=== PATIENT | male | born 1945 | race Caucasian/White ===

== ENCOUNTER → 2019-02-28 | Outpatient (CLI) | payer OTHER | END | disposition home or self-care (01) | LOC: WOUNDCARE 02:42 | DX: E11.622 Type 2 diabetes mellitus with other skin ulcer (principal); L97.822 Non-pressure chronic ulcer of other part of left lower leg with fat layer exposed; L97.811 Non-pressure chronic ulcer of other part of right lower leg limited to breakdown of skin; E11.51 Type 2 diabetes mellitus with diabetic peripheral angiopathy without gangrene; I11.0 Hypertensive heart disease with heart failure; I50.9 Heart failure, unspecified; Z96.653 Presence of artificial knee joint, bilateral ==

== ENCOUNTER → 2019-03-23 | Outpatient (CLI) | payer OTHER | END | disposition home or self-care (01) | LOC: US 03-01 11:30 | DX: E11.622 Type 2 diabetes mellitus with other skin ulcer (principal); L97.812 Non-pressure chronic ulcer of other part of right lower leg with fat layer exposed; L97.828 Non-pressure chronic ulcer of other part of left lower leg with other specified severity; E11.51 Type 2 diabetes mellitus with diabetic peripheral angiopathy without gangrene; I11.0 Hypertensive heart disease with heart failure; I50.9 Heart failure, unspecified ==

== ENCOUNTER 2020-09-30 09:06 | Inpatient (IN) | payer OTHER ==
[~2020-09-30] VITALS: Ht 182.8 cm; Wt 119.4 kg
[2020-09-30 09:08] VITALS: BP 146/63
[2020-09-30 09:47] LABS: MEAN CELL VOLUME 85.5 fl (80.0-94.0); MEAN CORPUSCULAR HGB 26.5 pg (27.0-31.0); MEAN PLATELET VOLUME 12.2 fl (9.6-12.3); PLATELET COUNT AUTOMATED 101 10*3/uL (130-400); RED BLOOD COUNT 4.68 10*6/uL (4.50-5.90); RED CELL DISTRI WIDTH 15.4 % (0-14.5); WHITE BLOOD COUNT 10.8 10*3/uL (4.8-10.8)
[2020-09-30 09:57] LABS: ACT PARTIAL THROMBO TIME 35.3 SECONDS (20.0-32.1); INTERNATIONAL NORM RATIO 1.2 (2.0-3.5)
[2020-09-30 10:03] LABS: ALBUMIN 2.8 gm/dl (3.1-4.5); CREATININE 3.1 mg/dL (0.70-1.30); POTASSIUM 5.3 mmol/L (3.5-5.1); TOTAL PROTEIN 7.2 gm/dL (6.4-8.2); TROPONIN I 0.037 ng/ml (<0.045)
[2020-09-30 10:07] LABS: ACANTHOCYTES FEW; PLATELET SUFFICIENCY LOW (NORMAL); SCHISTOCYTES FEW; TOTAL CELLS COUNTED 100 #CELLS
[2020-09-30 17:49] LABS: BILIRUBIN Negative (Negative); BLOOD 2+ (Negative); CLARITY Cloudy (Clear); COLOR Yellow (Yellow); GLUCOSE 1+ (Negative); KETONE Negative (Negative); LEUKO ESTERASE Negative (Negative); NITRITE Negative (Negative); SPECIFIC GRAVITY 1.025 (1.001-1.030)
[2020-09-30 17:51] VITALS: BP 127/60
[2020-09-30 17:57] LABS: BACTERIA 1+
[2020-09-30 23:55] VITALS: BP 121/63
[2020-10-01 06:14] LABS: HEMATOCRIT 35.8 % (42.0-52.0); MEAN CELL VOLUME 85.2 fl (80.0-94.0); MEAN CORPUSCULAR HGB 27.1 pg (27.0-31.0); MEAN CORPUSCULAR HGB CONC 31.8 g/dl (33.0-37.0); MEAN PLATELET VOLUME 12.9 fl (9.6-12.3); PLATELET COUNT AUTOMATED 96 10*3/uL (130-400); RED CELL DISTRI WIDTH 15.7 % (0-14.5); WHITE BLOOD COUNT 6.1 10*3/uL (4.8-10.8)
[2020-10-01 06:28] LABS: INTERNATIONAL NORM RATIO 1.3 (2.0-3.5)
[2020-10-01 06:42] LABS: POTASSIUM 4.9 mmol/L (3.5-5.1)
[2020-10-01 07:00] LABS: TOTAL CELLS COUNTED 100 #CELLS
[2020-10-01 07:01] LABS: ACANTHOCYTES FEW; BURR CELLS FEW; OVALOCYTES FEW; PLATELET SUFFICIENCY LOW (NORMAL); SCHISTOCYTES FEW
[2020-10-01 07:06] LABS: ALBUMIN 2.3 gm/dl (3.1-4.5); CREATININE 2.97 mg/dL (0.70-1.30); FREE T4 1.05 ng/dl (0.76-1.46); THYROID STIM HORMONE (HS) 7.73 uIU/ml (0.358-4.75); TOTAL PROTEIN 6.4 gm/dL (6.4-8.2)
[2020-10-01 08:10] LABS: COMPLEMENT C4 20 mg/dL (12-38)
[2020-10-01 09:15] VITALS: BP 129/58
[2020-10-01] MEDS ORDERED: ELIQUIS5 M1 PO (09:39)
[2020-10-01] MEDS ORDERED: COREG25 MG PO (10:32)
[2020-10-01] MEDS ORDERED: LEVOFLOXACIN500 MG PO (10:37)
[2020-10-01] MEDS ORDERED: METHYLPREDNISONE4 MG PO (10:37)
[2020-10-01] MEDS ORDERED: BENZONATATE200 MG PO (10:38)
[2020-10-01] MEDS ORDERED: FREESTYLE LIBR1 EAC2 MC (10:39)
[2020-10-01 12:56] VITALS: BP 128/62
[2020-10-01 14:53] VITALS: BP 155/79
[2020-10-01 20:00] VITALS: BP 162/68
[2020-10-02] VITALS: BP 158/63
[2020-10-02 08:00] VITALS: BP 154/75
[2020-10-02 09:22] LABS: HEMATOCRIT 37.8 % (42.0-52.0); MEAN CELL VOLUME 84.9 fl (80.0-94.0); MEAN CORPUSCULAR HGB 26.7 pg (27.0-31.0); MEAN CORPUSCULAR HGB CONC 31.5 g/dl (33.0-37.0); MEAN PLATELET VOLUME 11.7 fl (9.6-12.3); PLATELET COUNT AUTOMATED 113 10*3/uL (130-400); RED BLOOD COUNT 4.45 10*6/uL (4.50-5.90); RED CELL DISTRI WIDTH 15.9 % (0-14.5); WHITE BLOOD COUNT 9.7 10*3/uL (4.8-10.8)
[2020-10-02 09:52] LABS: ALBUMIN 2.2 gm/dl (3.1-4.5); CREATININE 3.18 mg/dL (0.70-1.30); POTASSIUM 5.1 mmol/L (3.5-5.1); TOTAL PROTEIN 6.5 gm/dL (6.4-8.2)
[2020-10-02 10:10] LABS: TOTAL CELLS COUNTED 100 #CELLS
[2020-10-02 10:11] LABS: ACANTHOCYTES MODERATE; PLATELET SUFFICIENCY LOW (NORMAL)
[2020-10-02 12:00] VITALS: BP 140/55
[2020-10-02 12:31] LABS: BODY FLUID WBC 103 /uL
[2020-10-02 13:18] LABS: BF LYMPHOCYTES 8 %; BF MACROPHAGES 54 %; BF MESOTHELIALS 7 %; BF NEUTROPHILS 31 %
[2020-10-02 16:00] VITALS: BP 153/64
[2020-10-02 20:00] VITALS: BP 148/75
[2020-10-03] VITALS: BP 142/55
[2020-10-03 06:14] LABS: BASO % 0.1 % (0.0-1.0); EOS % 0.1 % (1.0-4.0); HEMATOCRIT 37.4 % (42.0-52.0); LYMPH # 0.9 10*3/uL (1.3-4.4); LYMPH % 8.4 % (27.0-41.0); MEAN CELL VOLUME 84.2 fl (80.0-94.0); MEAN CORPUSCULAR HGB 25.9 pg (27.0-31.0); MEAN CORPUSCULAR HGB CONC 30.7 g/dl (33.0-37.0); MEAN PLATELET VOLUME 11.9 fl (9.6-12.3); MONO # 0.8 10*3/uL (0.1-1.0); MONO % 8.2 % (3.0-9.0); NEUT # 8.5 10*3/uL (2.3-7.9); NEUT % 82.9 % (47.0-73.0); PLATELET COUNT AUTOMATED 137 10*3/uL (130-400); RED BLOOD COUNT 4.44 10*6/uL (4.50-5.90); RED CELL DISTRI WIDTH 15.9 % (0-14.5); WHITE BLOOD COUNT 10.3 10*3/uL (4.8-10.8)
[2020-10-03 06:37] LABS: ALBUMIN 2.2 gm/dl (3.1-4.5); CREATININE 3.21 mg/dL (0.70-1.30); POTASSIUM 5.1 mmol/L (3.5-5.1)
[2020-10-03 08:00] VITALS: BP 155/69
[2020-10-03 12:00] VITALS: BP 145/63
[2020-10-03 16:00] VITALS: BP 156/68
[2020-10-03 20:00] VITALS: BP 161/63
[2020-10-04] VITALS: BP 173/75
[2020-10-04 06:13] LABS: BASO % 0.1 % (0.0-1.0); EOS % 0.2 % (1.0-4.0); HEMATOCRIT 38.9 % (42.0-52.0); LYMPH # 0.9 10*3/uL (1.3-4.4); LYMPH % 9.1 % (27.0-41.0); MEAN CELL VOLUME 85.9 fl (80.0-94.0); MEAN CORPUSCULAR HGB 26.9 pg (27.0-31.0); MEAN CORPUSCULAR HGB CONC 31.4 g/dl (33.0-37.0); MEAN PLATELET VOLUME 10.7 fl (9.6-12.3); MONO # 0.9 10*3/uL (0.1-1.0); MONO % 9.2 % (3.0-9.0); NEUT % 80.9 % (47.0-73.0); PLATELET COUNT AUTOMATED 149 10*3/uL (130-400); RED BLOOD COUNT 4.53 10*6/uL (4.50-5.90); RED CELL DISTRI WIDTH 15.9 % (0-14.5); WHITE BLOOD COUNT 9.8 10*3/uL (4.8-10.8)
[2020-10-04 06:48] LABS: CREATININE 3.09 mg/dL (0.70-1.30); POTASSIUM 5.1 mmol/L (3.5-5.1)
[2020-10-04 08:00] VITALS: BP 172/87
[2020-10-04 08:33] VITALS: BP 180/84
[2020-10-04 12:00] VITALS: BP 175/80
[2020-10-04 16:00] VITALS: BP 176/78
[2020-10-04 20:00] VITALS: BP 178/81
[2020-10-05] VITALS (7 sets, daily range): BP systolic 166–186; BP diastolic 73–88
[2020-10-05 12:28] LABS: BASO % 0.2 % (0.0-1.0); EOS # 0.1 10*3/uL (0.0-0.4); EOS % 0.8 % (1.0-4.0); HEMATOCRIT 38.8 % (42.0-52.0); LYMPH # 0.9 10*3/uL (1.3-4.4); LYMPH % 11.1 % (27.0-41.0); MEAN CELL VOLUME 84.5 fl (80.0-94.0); MEAN CORPUSCULAR HGB 26.6 pg (27.0-31.0); MEAN CORPUSCULAR HGB CONC 31.4 g/dl (33.0-37.0); MEAN PLATELET VOLUME 10.7 fl (9.6-12.3); MONO % 11.4 % (3.0-9.0); NEUT # 6.3 10*3/uL (2.3-7.9); NEUT % 74.8 % (47.0-73.0); PLATELET COUNT AUTOMATED 169 10*3/uL (130-400); RED BLOOD COUNT 4.59 10*6/uL (4.50-5.90); RED CELL DISTRI WIDTH 15.8 % (0-14.5); WHITE BLOOD COUNT 8.5 10*3/uL (4.8-10.8)
[2020-10-06] VITALS (7 sets, daily range): BP systolic 148–187; BP diastolic 65–78
[2020-10-06 08:55] LABS: BASO % 0.1 % (0.0-1.0); EOS # 0.1 10*3/uL (0.0-0.4); EOS % 1.2 % (1.0-4.0); HEMATOCRIT 38.2 % (42.0-52.0); LYMPH % 12.1 % (27.0-41.0); MEAN CELL VOLUME 86.4 fl (80.0-94.0); MEAN CORPUSCULAR HGB 26.5 pg (27.0-31.0); MEAN CORPUSCULAR HGB CONC 30.6 g/dl (33.0-37.0); MEAN PLATELET VOLUME 10.5 fl (9.6-12.3); MONO # 0.9 10*3/uL (0.1-1.0); MONO % 11.1 % (3.0-9.0); NEUT # 6.3 10*3/uL (2.3-7.9); NEUT % 73.7 % (47.0-73.0); PLATELET COUNT AUTOMATED 165 10*3/uL (130-400); RED BLOOD COUNT 4.42 10*6/uL (4.50-5.90); RED CELL DISTRI WIDTH 15.9 % (0-14.5); WHITE BLOOD COUNT 8.5 10*3/uL (4.8-10.8)
[2020-10-07] VITALS: BP 176/74
[2020-10-07 06:32] LABS: ALBUMIN 2.1 gm/dl (3.1-4.5); CREATININE 2.26 mg/dL (0.70-1.30); POTASSIUM 5.2 mmol/L (3.5-5.1)
[2020-10-07 08:00] VITALS: BP 175/75
[2020-10-07 08:34] VITALS: BP 164/88
[2020-10-07] MEDS ORDERED: DOXYCYCLINE MO100 M1 PO (09:10)
[2020-10-07] MEDS ORDERED: SYNTHROID,LEV125 MCG PO (09:10)
[2020-10-07] MEDS ORDERED: VITAMIN D350 MC2 PO (09:10)
[2020-10-07] MEDS ORDERED: HYDROCODONE-AC1 EAC1 PO (09:10)
[2020-10-07] MEDS ORDERED: ATORVASTATIN CA40 M1 PO (09:10)
[2020-10-07] MEDS ORDERED: ISORDIL10 M1 PO (09:10)
[2020-10-07] MEDS ORDERED: LEVOFLOXACIN750 M2 PO (09:10)
[2020-10-07] MEDS ORDERED: Lantus SC (09:12)
[2020-10-07] MEDS ORDERED: Humalog SQ (09:12)
[2020-10-07] MEDS ORDERED: COREG12.5 M1 PO (11:11)
[2020-10-07] MEDS ORDERED: HYDRALAZINE HYD50 MG PO (11:11)
[2020-10-07] MEDS ORDERED: DOK COLACE100 MG PO (11:11)
[2020-10-07] MEDS ORDERED: LASIX40 MG PO (11:18)
[2020-10-07 12:00] VITALS: BP 176/73
[2020-10-07 16:00] VITALS: BP 175/70
== END 2020-10-07 17:33 | disposition other institution (70) | DRG 291 ==
LOC: ED 09:06 → 5E 11:34 → EDHOLD 11:34 → 5E 10-01 13:36
PROVIDERS: Emergency Medicine; Family Medicine; Internal Medicine Critical Care Medicine; Internal Medicine Nephrology; Podiatrist Foot & Ankle Surgery; Registered Nurse; Student in an Organized Health Care Education/Training Program; ADMIT Student in an Organized Health Care Education/Training Program; ATTEND Student in an Organized Health Care Education/Training Program
PROC: 4B02XTZ Measurement of Cardiac Defibrillator, External Approach (ICD-10-PCS; principal; 2020-10-02)
PROC: 0W993ZZ Drainage of Right Pleural Cavity, Percutaneous Approach (ICD-10-PCS; 2020-10-02)
DX: I13.0 Hypertensive heart and chronic kidney disease with heart failure and stage 1 through stage 4 chronic kidney disease, or unspecified chronic kidney disease (principal); N17.0 Acute kidney failure with tubular necrosis; I50.23 Acute on chronic systolic (congestive) heart failure; L03.116 Cellulitis of left lower limb; I48.92 Unspecified atrial flutter; J91.8 Pleural effusion in other conditions classified elsewhere; N18.4 Chronic kidney disease, stage 4 (severe); L03.115 Cellulitis of right lower limb; Z68.37 Body mass index [BMI] 37.0-37.9, adult; E86.0 Dehydration; Z95.810 Presence of automatic (implantable) cardiac defibrillator; I25.10 Atherosclerotic heart disease of native coronary artery without angina pectoris; T79.6XXA Traumatic ischemia of muscle, initial encounter; X58.XXXA Exposure to other specified factors, initial encounter; E03.9 Hypothyroidism, unspecified; E11.51 Type 2 diabetes mellitus with diabetic peripheral angiopathy without gangrene; E11.65 Type 2 diabetes mellitus with hyperglycemia; E11.22 Type 2 diabetes mellitus with diabetic chronic kidney disease; E78.5 Hyperlipidemia, unspecified; R26.2 Difficulty in walking, not elsewhere classified; M20.42 Other hammer toe(s) (acquired), left foot; M20.41 Other hammer toe(s) (acquired), right foot; Z96.653 Presence of artificial knee joint, bilateral; D69.6 Thrombocytopenia, unspecified; I50.9 Heart failure, unspecified; I08.1 Rheumatic disorders of both mitral and tricuspid valves; I27.20 Pulmonary hypertension, unspecified; E87.5 Hyperkalemia; E66.9 Obesity, unspecified; Z20.822 Contact with and (suspected) exposure to COVID-19; E11.621 Type 2 diabetes mellitus with foot ulcer; L97.529 Non-pressure chronic ulcer of other part of left foot with unspecified severity; L97.519 Non-pressure chronic ulcer of other part of right foot with unspecified severity; Y93.89 Activity, other specified; Y92.89 Other specified places as the place of occurrence of the external cause; Y99.8 Other external cause status; Z95.1 Presence of aortocoronary bypass graft; Z83.3 Family history of diabetes mellitus; Z79.899 Other long term (current) drug therapy

== ENCOUNTER 2020-11-16 11:54 | Inpatient (IN) | payer OTHER ==
[~2020-11-16] VITALS: Ht 195.6 cm; Wt 117.9 kg
[~2020-11-16 11:54] MED LIST: ATORVASTATIN CA40 M1 PO; BENZONATATE200 MG PO; COREG12.5 M1 PO; COREG25 MG PO; DOK COLACE100 MG PO; DOXYCYCLINE MO100 M1 PO; ELIQUIS5 M1 PO; FREESTYLE LIBR1 EAC2 MC; HYDRALAZINE HYD50 MG PO; HYDROCODONE-AC1 EAC1 PO; Humalog SQ; ISORDIL10 M1 PO; LASIX40 MG PO; LEVOFLOXACIN500 MG PO; LEVOFLOXACIN750 M2 PO; Lantus SC; METHYLPREDNISONE4 MG PO; SYNTHROID,LEV125 MCG PO; VITAMIN D350 MC2 PO
[2020-11-16 12:05] VITALS: BP 126/46
[2020-11-16 12:33] LABS: HEMATOCRIT 27.3 % (42.0-52.0); MEAN CELL VOLUME 88.1 fl (80.0-94.0); MEAN CORPUSCULAR HGB 26.1 pg (27.0-31.0); MEAN CORPUSCULAR HGB CONC 29.7 g/dl (33.0-37.0); MEAN PLATELET VOLUME 11.5 fl (9.6-12.3); PLATELET COUNT AUTOMATED 159 10*3/uL (130-400); RED CELL DISTRI WIDTH 16.6 % (0-14.5); WHITE BLOOD COUNT 15.4 10*3/uL (4.8-10.8)
[2020-11-16 12:38] LABS: INTERNATIONAL NORM RATIO 1.4 (2.0-3.5)
[2020-11-16 12:43] LABS: ALBUMIN 2.8 gm/dl (3.1-4.5); CREATININE 3.04 mg/dL (0.70-1.30); POTASSIUM 5.2 mmol/L (3.5-5.1); TOTAL PROTEIN 7.3 gm/dL (6.4-8.2)
[2020-11-16 12:44] LABS: BURR CELLS MODERATE; OVALOCYTES FEW; PLATELET SUFFICIENCY NORMAL (NORMAL); POLYCHROMASIA SLIGHT; SCHISTOCYTES MODERATE; TOTAL CELLS COUNTED 100 #CELLS; TOXIC GRANULATION SLIGHT; TROPONIN I 0.023 ng/ml (<0.045)
[2020-11-16 14:04] VITALS: BP 133/59
[2020-11-16 14:09] LABS: ARTERIAL BLOOD GAS PH 7.421 (7.35-7.45); ARTERIAL BLOOD GAS PO2 73.6 (80-90)
[2020-11-16 14:10] LABS: ABG BASE EXCESS -5.9 mmol/L (-2.0-2.0)
[2020-11-16 14:25] LABS: BILIRUBIN Negative (Negative); BLOOD Negative (Negative); CLARITY Clear (Clear); COLOR Yellow (Yellow); GLUCOSE Negative (Negative); KETONE Negative (Negative); LEUKO ESTERASE Trace (Negative); NITRITE Negative (Negative); SPECIFIC GRAVITY 1.015 (1.001-1.030); UROBILINOGEN 0.2 E.U./dl (0.0-1.0)
[2020-11-16 14:46] VITALS: BP 92/47
[2020-11-16 14:47] LABS: RBC 0-2 rbc/hpf (0-2); WBC 0-2 wbc/hpf (0-5)
[2020-11-16 14:48] LABS: BACTERIA TRACE
[2020-11-16 16:20] VITALS: BP 146/39
[2020-11-16] MEDS ORDERED: BUMETANIDE1 MG PO (18:02)
[2020-11-16 20:00] VITALS: BP 132/60
[2020-11-17] VITALS: BP 119/48
[2020-11-17 04:00] VITALS: BP 109/52
[2020-11-17 05:39] LABS: ALBUMIN 2.6 gm/dl (3.1-4.5); CREATININE 3.22 mg/dL (0.70-1.30); POTASSIUM 4.9 mmol/L (3.5-5.1); TOTAL PROTEIN 6.9 gm/dL (6.4-8.2)
[2020-11-17 06:23] LABS: BASO % 0.1 % (0.0-1.0); HEMATOCRIT 25.1 % (42.0-52.0); LYMPH # 0.4 10*3/uL (1.3-4.4); LYMPH % 5.1 % (27.0-41.0); MEAN CELL VOLUME 88.4 fl (80.0-94.0); MEAN CORPUSCULAR HGB 26.8 pg (27.0-31.0); MEAN CORPUSCULAR HGB CONC 30.3 g/dl (33.0-37.0); MEAN PLATELET VOLUME 11.2 fl (9.6-12.3); MONO # 0.6 10*3/uL (0.1-1.0); MONO % 8.3 % (3.0-9.0); NEUT # 6.6 10*3/uL (2.3-7.9); NEUT % 85.3 % (47.0-73.0); PLATELET COUNT AUTOMATED 123 10*3/uL (130-400); RED BLOOD COUNT 2.84 10*6/uL (4.50-5.90); RED CELL DISTRI WIDTH 16.7 % (0-14.5); WHITE BLOOD COUNT 7.7 10*3/uL (4.8-10.8)
[2020-11-17 08:00] VITALS: BP 131/50
[2020-11-17 12:00] VITALS: BP 116/54
[2020-11-17 16:00] VITALS: BP 131/61
[2020-11-17 20:00] VITALS: BP 126/58
[2020-11-18] VITALS: BP 141/51
[2020-11-18 04:00] VITALS: BP 124/60
[2020-11-18 06:10] LABS: BASO % 0.2 % (0.0-1.0); EOS % 0.2 % (1.0-4.0); HEMATOCRIT 25.1 % (42.0-52.0); LYMPH # 0.5 10*3/uL (1.3-4.4); LYMPH % 9.6 % (27.0-41.0); MEAN CELL VOLUME 86.3 fl (80.0-94.0); MEAN CORPUSCULAR HGB 26.5 pg (27.0-31.0); MEAN CORPUSCULAR HGB CONC 30.7 g/dl (33.0-37.0); MEAN PLATELET VOLUME 11.6 fl (9.6-12.3); MONO # 0.6 10*3/uL (0.1-1.0); MONO % 11.5 % (3.0-9.0); NEUT % 78.1 % (47.0-73.0); PLATELET COUNT AUTOMATED 131 10*3/uL (130-400); RED BLOOD COUNT 2.91 10*6/uL (4.50-5.90); RED CELL DISTRI WIDTH 16.4 % (0-14.5); WHITE BLOOD COUNT 5.1 10*3/uL (4.8-10.8)
[2020-11-18 06:16] LABS: ALBUMIN 2.5 gm/dl (3.1-4.5); CREATININE 3.48 mg/dL (0.70-1.30); POTASSIUM 4.7 mmol/L (3.5-5.1); TOTAL PROTEIN 6.7 gm/dL (6.4-8.2)
[2020-11-18 08:00] VITALS: BP 123/63
[2020-11-18 11:12] LABS: BILIRUBIN Negative (Negative); BLOOD 2+ (Negative); CLARITY Clear (Clear); COLOR Yellow (Yellow); GLUCOSE Negative (Negative); KETONE Negative (Negative); LEUKO ESTERASE Trace (Negative); NITRITE Negative (Negative); UROBILINOGEN 0.2 E.U./dl (0.0-1.0)
[2020-11-18 11:21] LABS: URINE CREATININE RANDOM 37.4 mg/dL
[2020-11-18 11:40] LABS: BACTERIA TRACE; RBC 31-40 rbc/hpf (0-2)
[2020-11-18 12:00] VITALS: BP 136/58
[2020-11-18 16:00] VITALS: BP 143/64
[2020-11-18 20:00] VITALS: BP 127/59
[2020-11-19] VITALS (10 sets, daily range): BP systolic 107–151; BP diastolic 50–89
[2020-11-19 05:54] LABS: ALBUMIN 2.5 gm/dl (3.1-4.5); CREATININE 3.47 mg/dL (0.70-1.30); POTASSIUM 4.4 mmol/L (3.5-5.1); TOTAL PROTEIN 7.1 gm/dL (6.4-8.2)
[2020-11-19 06:30] LABS: EOS % 0.1 % (1.0-4.0); HEMATOCRIT 25.8 % (42.0-52.0); LYMPH # 0.5 10*3/uL (1.3-4.4); LYMPH % 6.4 % (27.0-41.0); MEAN CELL VOLUME 86.9 fl (80.0-94.0); MEAN CORPUSCULAR HGB 26.3 pg (27.0-31.0); MEAN CORPUSCULAR HGB CONC 30.2 g/dl (33.0-37.0); MEAN PLATELET VOLUME 11.9 fl (9.6-12.3); MONO # 0.5 10*3/uL (0.1-1.0); MONO % 7.7 % (3.0-9.0); NEUT % 84.8 % (47.0-73.0); PLATELET COUNT AUTOMATED 144 10*3/uL (130-400); RED BLOOD COUNT 2.97 10*6/uL (4.50-5.90); RED CELL DISTRI WIDTH 16.6 % (0-14.5)
[2020-11-19 07:12] LABS: FERRITIN 109.3 ng/mL (22.0-322.0); PTH INTACT 115.3 pg/mL (18.5-88.0)
[2020-11-19 18:08] LABS: BASO % 0.2 % (0.0-1.0); EOS % 0.2 % (1.0-4.0); HEMATOCRIT 26.4 % (42.0-52.0); LYMPH # 0.4 10*3/uL (1.3-4.4); LYMPH % 7.1 % (27.0-41.0); MEAN CELL VOLUME 87.7 fl (80.0-94.0); MEAN CORPUSCULAR HGB 26.2 pg (27.0-31.0); MEAN CORPUSCULAR HGB CONC 29.9 g/dl (33.0-37.0); MEAN PLATELET VOLUME 10.6 fl (9.6-12.3); MONO # 0.3 10*3/uL (0.1-1.0); MONO % 4.7 % (3.0-9.0); NEUT # 5.4 10*3/uL (2.3-7.9); NEUT % 87.5 % (47.0-73.0); PLATELET COUNT AUTOMATED 147 10*3/uL (130-400); RED BLOOD COUNT 3.01 10*6/uL (4.50-5.90); RED CELL DISTRI WIDTH 16.5 % (0-14.5); WHITE BLOOD COUNT 6.2 10*3/uL (4.8-10.8)
[2020-11-19 18:09] LABS: HEMATOCRIT 26.3 % (42.0-52.0)
[2020-11-19 18:21] LABS: ALBUMIN 2.7 gm/dl (3.1-4.5); CREATININE 2.98 mg/dL (0.70-1.30)
[2020-11-20] VITALS (7 sets, daily range): BP systolic 90–153; BP diastolic 27–60
[2020-11-20 05:31] LABS: HEP B CORE AB, IGM Negative (Negative); HEPATITIS B SURFACE AG Negative (Negative); HEPATITIS C VIRUS ANTIBODY <0.1 s/co (0.0-0.9); RHEUMATOID ARTHRITIS FACTOR 10.7 IU/mL (0.0-13.9)
[2020-11-20 07:08] LABS: BASO % 0.1 % (0.0-1.0); EOS % 0.3 % (1.0-4.0); HEMATOCRIT 26.9 % (42.0-52.0); LYMPH # 0.7 10*3/uL (1.3-4.4); LYMPH % 8.8 % (27.0-41.0); MEAN CELL VOLUME 87.9 fl (80.0-94.0); MEAN CORPUSCULAR HGB 26.1 pg (27.0-31.0); MEAN CORPUSCULAR HGB CONC 29.7 g/dl (33.0-37.0); MEAN PLATELET VOLUME 11.3 fl (9.6-12.3); MONO # 0.7 10*3/uL (0.1-1.0); MONO % 9.5 % (3.0-9.0); PLATELET COUNT AUTOMATED 148 10*3/uL (130-400); RED BLOOD COUNT 3.06 10*6/uL (4.50-5.90); RED CELL DISTRI WIDTH 16.7 % (0-14.5); WHITE BLOOD COUNT 7.4 10*3/uL (4.8-10.8)
[2020-11-20 07:23] LABS: ALBUMIN 2.6 gm/dl (3.1-4.5); CREATININE 3.1 mg/dL (0.70-1.30); POTASSIUM 4.3 mmol/L (3.5-5.1)
[2020-11-20 15:09] LABS: ALBUMIN, URINE RANDOM 60.7 % (.); ALPHA-1-GLOBULIN, URINE 1.6 % (.); ALPHA-2-GLOBULIN, URINE 11.2 % (.); GAMMA GLOBULIN, URINE 14.5 % (.); M-SPIKE % Not Observed % (Not Observed); PROTEIN,TOTAL - URINE RANDOM 43.1 mg/dL (Not Estab.)
[2020-11-20 16:09] LABS: A/G RATIO 0.8 (0.7-1.7); ALBUMIN 2.9 g/dL (2.9-4.4); ALPHA-1-GLOBULIN 0.4 g/dL (0.0-0.4); ALPHA-2-GLOBULIN 0.7 g/dL (0.4-1.0); ATYPICAL PANCA <1:20 titer (Neg:<1:20); BETA GLOBULIN 1.1 g/dL (0.7-1.3); CYTOPLASMIC (C-ANCA) <1:20 titer (Neg:<1:20); GAMMA GLOBULIN 1.4 g/dL (0.4-1.8); GLOBULIN, TOTAL 3.6 g/dL (2.2-3.9); M-SPIKE Not Observed g/dL (Not Observed); TOTAL PROTEIN, SERUM 6.5 g/dL (6.0-8.5)
[2020-11-20 17:06] LABS: FREE KAPPA LIGHT CHAINS 134.5 mg/L (3.3-19.4); FREE LAMBDA LIGHT CHAINS 102.4 mg/L (5.7-26.3); KAPPA/LAMBDA RATIO 1.31 (0.26-1.65)
[2020-11-21] VITALS: BP 151/56
[2020-11-21 06:43] LABS: BASO % 0.3 % (0.0-1.0); EOS % 0.5 % (1.0-4.0); HEMATOCRIT 26.7 % (42.0-52.0); LYMPH # 0.9 10*3/uL (1.3-4.4); LYMPH % 11.6 % (27.0-41.0); MEAN CELL VOLUME 87.5 fl (80.0-94.0); MEAN CORPUSCULAR HGB 26.2 pg (27.0-31.0); MEAN PLATELET VOLUME 10.4 fl (9.6-12.3); MONO # 0.9 10*3/uL (0.1-1.0); MONO % 12.5 % (3.0-9.0); NEUT # 5.6 10*3/uL (2.3-7.9); NEUT % 74.8 % (47.0-73.0); PLATELET COUNT AUTOMATED 141 10*3/uL (130-400); RED BLOOD COUNT 3.05 10*6/uL (4.50-5.90); RED CELL DISTRI WIDTH 16.6 % (0-14.5); WHITE BLOOD COUNT 7.4 10*3/uL (4.8-10.8)
[2020-11-21 07:14] LABS: ALBUMIN 2.5 gm/dl (3.1-4.5); CREATININE 2.68 mg/dL (0.70-1.30); TOTAL PROTEIN 6.8 gm/dL (6.4-8.2)
[2020-11-21 09:01] LABS: ALBUMIN 2.5 gm/dl (3.1-4.5); CREATININE 2.69 mg/dL (0.70-1.30)
[2020-11-21 10:07] LABS: GLOMERULAR BASEMENT AB 4 units (0-20)
[2020-11-21 12:00] VITALS: BP 150/56
[2020-11-21 16:00] VITALS: BP 110/41
[2020-11-21 20:00] VITALS: BP 120/52
[2020-11-21 23:45] VITALS: BP 100/50
[2020-11-22] VITALS: BP 122/32
[2020-11-22 06:29] LABS: BASO % 0.2 % (0.0-1.0); EOS # 0.1 10*3/uL (0.0-0.4); HEMATOCRIT 26.4 % (42.0-52.0); LYMPH # 0.9 10*3/uL (1.3-4.4); LYMPH % 15.8 % (27.0-41.0); MEAN CORPUSCULAR HGB 26.3 pg (27.0-31.0); MEAN CORPUSCULAR HGB CONC 29.9 g/dl (33.0-37.0); MEAN PLATELET VOLUME 10.5 fl (9.6-12.3); MONO # 0.8 10*3/uL (0.1-1.0); NEUT % 68.7 % (47.0-73.0); PLATELET COUNT AUTOMATED 122 10*3/uL (130-400); RED CELL DISTRI WIDTH 16.1 % (0-14.5); WHITE BLOOD COUNT 5.8 10*3/uL (4.8-10.8)
[2020-11-22 06:53] LABS: POTASSIUM 4.1 mmol/L (3.5-5.1)
[2020-11-22 07:07] LABS: ALBUMIN 2.5 gm/dl (3.1-4.5); CREATININE 2.36 mg/dL (0.70-1.30); TOTAL PROTEIN 6.6 gm/dL (6.4-8.2)
[2020-11-22 07:56] VITALS: BP 122/44
[2020-11-22 08:00] VITALS: BP 122/44
[2020-11-22 11:49] LABS: BODY FLUID WBC 130 /uL
[2020-11-22 12:00] VITALS: BP 131/56
[2020-11-22 12:27] LABS: BF MACROPHAGES 68 %; BF MESOTHELIALS 7 %; BF NEUTROPHILS 25 %
[2020-11-22 14:12] VITALS: BP 108/40
[2020-11-22 20:00] VITALS: BP 114/44
[2020-11-23] VITALS: BP 99/57
[2020-11-23 06:36] LABS: BASO % 0.2 % (0.0-1.0); EOS # 0.1 10*3/uL (0.0-0.4); EOS % 1.4 % (1.0-4.0); HEMATOCRIT 27.1 % (42.0-52.0); LYMPH # 0.8 10*3/uL (1.3-4.4); LYMPH % 16.6 % (27.0-41.0); MEAN CELL VOLUME 87.4 fl (80.0-94.0); MEAN CORPUSCULAR HGB 26.1 pg (27.0-31.0); MEAN CORPUSCULAR HGB CONC 29.9 g/dl (33.0-37.0); MEAN PLATELET VOLUME 10.6 fl (9.6-12.3); MONO # 0.6 10*3/uL (0.1-1.0); MONO % 12.2 % (3.0-9.0); NEUT # 3.5 10*3/uL (2.3-7.9); PLATELET COUNT AUTOMATED 112 10*3/uL (130-400); RED CELL DISTRI WIDTH 15.8 % (0-14.5)
[2020-11-23 07:14] LABS: ALBUMIN 2.4 gm/dl (3.1-4.5); CREATININE 2.68 mg/dL (0.70-1.30); POTASSIUM 4.2 mmol/L (3.5-5.1)
[2020-11-23 07:16] LABS: TOTAL PROTEIN 6.4 gm/dL (6.4-8.2)
[2020-11-23 08:00] VITALS: BP 138/58
[2020-11-23 12:00] VITALS: BP 137/61
[2020-11-23 15:07] LABS: ACID FAST SPEC PROCESSING Direct Inoculation (.)
[2020-11-23 16:00] VITALS: BP 118/46
[2020-11-23 20:00] VITALS: BP 133/77
[2020-11-24] VITALS: BP 98/50
[2020-11-24 06:07] LABS: BASO % 0.4 % (0.0-1.0); EOS # 0.1 10*3/uL (0.0-0.4); EOS % 1.3 % (1.0-4.0); HEMATOCRIT 26.6 % (42.0-52.0); LYMPH # 0.8 10*3/uL (1.3-4.4); LYMPH % 18.7 % (27.0-41.0); MEAN CELL VOLUME 87.2 fl (80.0-94.0); MEAN CORPUSCULAR HGB 25.9 pg (27.0-31.0); MEAN CORPUSCULAR HGB CONC 29.7 g/dl (33.0-37.0); MEAN PLATELET VOLUME 10.8 fl (9.6-12.3); MONO # 0.5 10*3/uL (0.1-1.0); MONO % 11.3 % (3.0-9.0); NEUT # 3.1 10*3/uL (2.3-7.9); NEUT % 67.9 % (47.0-73.0); PLATELET COUNT AUTOMATED 103 10*3/uL (130-400); RED BLOOD COUNT 3.05 10*6/uL (4.50-5.90); RED CELL DISTRI WIDTH 15.8 % (0-14.5); WHITE BLOOD COUNT 4.5 10*3/uL (4.8-10.8)
[2020-11-24 06:26] LABS: CREATININE 2.04 mg/dL (0.70-1.30); POTASSIUM 4.2 mmol/L (3.5-5.1)
[2020-11-24 08:00] VITALS: BP 127/60
[2020-11-24 12:00] VITALS: BP 118/61
[2020-11-24 16:00] VITALS: BP 100/45
[2020-11-24 20:00] VITALS: BP 109/57
[2020-11-24 23:43] VITALS: BP 133/69
[2020-11-25 01:25] VITALS: BP 113/51
[2020-11-25 08:26] LABS: BASO % 0.4 % (0.0-1.0); EOS # 0.1 10*3/uL (0.0-0.4); EOS % 1.4 % (1.0-4.0); HEMATOCRIT 25.5 % (42.0-52.0); LYMPH # 1.1 10*3/uL (1.3-4.4); LYMPH % 22.7 % (27.0-41.0); MEAN CELL VOLUME 86.7 fl (80.0-94.0); MEAN CORPUSCULAR HGB 25.9 pg (27.0-31.0); MEAN CORPUSCULAR HGB CONC 29.8 g/dl (33.0-37.0); MEAN PLATELET VOLUME 10.9 fl (9.6-12.3); MONO # 0.3 10*3/uL (0.1-1.0); MONO % 5.9 % (3.0-9.0); NEUT # 3.4 10*3/uL (2.3-7.9); NEUT % 69.2 % (47.0-73.0); PLATELET COUNT AUTOMATED 104 10*3/uL (130-400); RED BLOOD COUNT 2.94 10*6/uL (4.50-5.90); RED CELL DISTRI WIDTH 15.6 % (0-14.5); WHITE BLOOD COUNT 4.9 10*3/uL (4.8-10.8)
[2020-11-25 09:17] LABS: CREATININE 2.02 mg/dL (0.70-1.30); POTASSIUM 3.9 mmol/L (3.5-5.1)
[2020-11-25 11:52] LABS: HEMATOCRIT 26.3 % (42.0-52.0)
[2020-11-25 12:00] VITALS: BP 107/33
[2020-11-25 16:00] VITALS: BP 110/54
[2020-11-25 20:00] VITALS: BP 108/45
[2020-11-25 20:45] VITALS: BP 110/52
[2020-11-25 23:00] VITALS: BP 133/57
[2020-11-26] VITALS: BP 110/34
[2020-11-26 07:09] LABS: BASO % 0.4 % (0.0-1.0); EOS # 0.1 10*3/uL (0.0-0.4); EOS % 0.9 % (1.0-4.0); HEMATOCRIT 25.9 % (42.0-52.0); LYMPH # 1.1 10*3/uL (1.3-4.4); MEAN CELL VOLUME 87.5 fl (80.0-94.0); MEAN CORPUSCULAR HGB 26.4 pg (27.0-31.0); MEAN CORPUSCULAR HGB CONC 30.1 g/dl (33.0-37.0); MEAN PLATELET VOLUME 11.1 fl (9.6-12.3); MONO # 0.5 10*3/uL (0.1-1.0); MONO % 9.2 % (3.0-9.0); NEUT # 3.9 10*3/uL (2.3-7.9); NEUT % 70.1 % (47.0-73.0); PLATELET COUNT AUTOMATED 106 10*3/uL (130-400); RED BLOOD COUNT 2.96 10*6/uL (4.50-5.90); RED CELL DISTRI WIDTH 15.6 % (0-14.5); WHITE BLOOD COUNT 5.6 10*3/uL (4.8-10.8)
[2020-11-26 07:34] LABS: CREATININE 2.56 mg/dL (0.70-1.30); POTASSIUM 4.2 mmol/L (3.5-5.1)
[2020-11-26 08:00] VITALS: BP 111/42
[2020-11-26 12:00] VITALS: BP 105/48
[2020-11-26 16:00] VITALS: BP 151/58
[2020-11-26 20:00] VITALS: BP 138/69
[2020-11-27] VITALS: BP 126/69
[2020-11-27 06:50] LABS: ALBUMIN 2.3 gm/dl (3.1-4.5); CREATININE 3.01 mg/dL (0.70-1.30); POTASSIUM 4.1 mmol/L (3.5-5.1); TOTAL PROTEIN 6.4 gm/dL (6.4-8.2)
[2020-11-27 08:00] VITALS: BP 112/55
[2020-11-27 12:00] VITALS: BP 110/62
[2020-11-27 12:10] LABS: BASO % 0.6 % (0.0-1.0); EOS # 0.1 10*3/uL (0.0-0.4); EOS % 1.5 % (1.0-4.0); HEMATOCRIT 26.7 % (42.0-52.0); LYMPH # 0.9 10*3/uL (1.3-4.4); LYMPH % 17.2 % (27.0-41.0); MEAN CELL VOLUME 87.5 fl (80.0-94.0); MEAN CORPUSCULAR HGB 25.2 pg (27.0-31.0); MEAN CORPUSCULAR HGB CONC 28.8 g/dl (33.0-37.0); MEAN PLATELET VOLUME 11.2 fl (9.6-12.3); MONO # 0.6 10*3/uL (0.1-1.0); MONO % 10.5 % (3.0-9.0); NEUT # 3.7 10*3/uL (2.3-7.9); NEUT % 69.8 % (47.0-73.0); PLATELET COUNT AUTOMATED 113 10*3/uL (130-400); RED BLOOD COUNT 3.05 10*6/uL (4.50-5.90); RED CELL DISTRI WIDTH 15.6 % (0-14.5); WHITE BLOOD COUNT 5.4 10*3/uL (4.8-10.8)
[2020-11-27 16:00] VITALS: BP 117/67
[2020-11-27 20:00] VITALS: BP 140/48
[2020-11-28] VITALS: BP 98/42
[2020-11-28 06:42] LABS: BASO % 0.6 % (0.0-1.0); EOS # 0.1 10*3/uL (0.0-0.4); EOS % 1.2 % (1.0-4.0); HEMATOCRIT 26.4 % (42.0-52.0); LYMPH # 0.9 10*3/uL (1.3-4.4); LYMPH % 19.3 % (27.0-41.0); MEAN CELL VOLUME 87.4 fl (80.0-94.0); MEAN CORPUSCULAR HGB 25.8 pg (27.0-31.0); MEAN CORPUSCULAR HGB CONC 29.5 g/dl (33.0-37.0); MEAN PLATELET VOLUME 11.4 fl (9.6-12.3); MONO # 0.5 10*3/uL (0.1-1.0); MONO % 10.7 % (3.0-9.0); NEUT # 3.3 10*3/uL (2.3-7.9); PLATELET COUNT AUTOMATED 114 10*3/uL (130-400); RED BLOOD COUNT 3.02 10*6/uL (4.50-5.90); RED CELL DISTRI WIDTH 15.6 % (0-14.5); WHITE BLOOD COUNT 4.9 10*3/uL (4.8-10.8)
[2020-11-28 06:52] LABS: CREATININE 2.64 mg/dL (0.70-1.30); POTASSIUM 3.9 mmol/L (3.5-5.1)
[2020-11-28 08:00] VITALS: BP 145/86
[2020-11-28 11:57] VITALS: BP 125/59
[2020-11-28 16:00] VITALS: BP 110/56
[2020-11-28 20:00] VITALS: BP 130/57
[2020-11-29] VITALS: BP 122/47
[2020-11-29 06:39] LABS: BASO % 0.8 % (0.0-1.0); EOS # 0.1 10*3/uL (0.0-0.4); EOS % 1.2 % (1.0-4.0); HEMATOCRIT 26.9 % (42.0-52.0); LYMPH # 0.9 10*3/uL (1.3-4.4); LYMPH % 17.6 % (27.0-41.0); MEAN CELL VOLUME 86.2 fl (80.0-94.0); MEAN CORPUSCULAR HGB 25.6 pg (27.0-31.0); MEAN CORPUSCULAR HGB CONC 29.7 g/dl (33.0-37.0); MEAN PLATELET VOLUME 11.8 fl (9.6-12.3); MONO # 0.6 10*3/uL (0.1-1.0); MONO % 11.5 % (3.0-9.0); NEUT # 3.4 10*3/uL (2.3-7.9); NEUT % 68.5 % (47.0-73.0); PLATELET COUNT AUTOMATED 116 10*3/uL (130-400); RED BLOOD COUNT 3.12 10*6/uL (4.50-5.90); RED CELL DISTRI WIDTH 15.5 % (0-14.5)
[2020-11-29 07:01] LABS: POTASSIUM 3.8 mmol/L (3.5-5.1)
[2020-11-29 07:02] LABS: CREATININE 3.12 mg/dL (0.70-1.30)
[2020-11-29 12:00] VITALS: BP 125/50
[2020-11-29 16:00] VITALS: BP 135/86
[2020-11-29 20:00] VITALS: BP 161/60
[2020-11-30] VITALS: BP 121/88
[2020-11-30 06:47] LABS: BASO % 0.7 % (0.0-1.0); EOS # 0.1 10*3/uL (0.0-0.4); EOS % 1.4 % (1.0-4.0); HEMATOCRIT 26.3 % (42.0-52.0); LYMPH # 0.8 10*3/uL (1.3-4.4); MEAN CELL VOLUME 86.2 fl (80.0-94.0); MEAN CORPUSCULAR HGB 25.6 pg (27.0-31.0); MEAN CORPUSCULAR HGB CONC 29.7 g/dl (33.0-37.0); MEAN PLATELET VOLUME 11.9 fl (9.6-12.3); MONO # 0.6 10*3/uL (0.1-1.0); NEUT # 2.8 10*3/uL (2.3-7.9); NEUT % 64.9 % (47.0-73.0); PLATELET COUNT AUTOMATED 114 10*3/uL (130-400); RED BLOOD COUNT 3.05 10*6/uL (4.50-5.90); RED CELL DISTRI WIDTH 15.5 % (0-14.5); WHITE BLOOD COUNT 4.4 10*3/uL (4.8-10.8)
[2020-11-30 07:28] LABS: CREATININE 2.64 mg/dL (0.70-1.30); POTASSIUM 3.9 mmol/L (3.5-5.1)
[2020-11-30 08:00] VITALS: BP 129/51
[2020-11-30 12:00] VITALS: BP 128/59
[2020-11-30 16:00] VITALS: BP 144/47
[2020-11-30 20:00] VITALS: BP 135/45
[2020-12-01] VITALS: BP 125/44
[2020-12-01 06:20] LABS: BASO % 0.8 % (0.0-1.0); EOS # 0.1 10*3/uL (0.0-0.4); EOS % 1.5 % (1.0-4.0); HEMATOCRIT 26.7 % (42.0-52.0); MEAN CELL VOLUME 86.7 fl (80.0-94.0); MEAN CORPUSCULAR HGB CONC 28.8 g/dl (33.0-37.0); MEAN PLATELET VOLUME 11.6 fl (9.6-12.3); MONO # 0.6 10*3/uL (0.1-1.0); MONO % 12.4 % (3.0-9.0); NEUT # 3.1 10*3/uL (2.3-7.9); NEUT % 64.1 % (47.0-73.0); PLATELET COUNT AUTOMATED 127 10*3/uL (130-400); RED BLOOD COUNT 3.08 10*6/uL (4.50-5.90); RED CELL DISTRI WIDTH 15.7 % (0-14.5); WHITE BLOOD COUNT 4.8 10*3/uL (4.8-10.8)
[2020-12-01 08:00] VITALS: BP 116/60; BP 142/63
[2020-12-01 12:00] VITALS: BP 157/85
[2020-12-01 16:00] VITALS: BP 137/53
[2020-12-01 20:00] VITALS: BP 128/45
[2020-12-02] VITALS: BP 108/34
[2020-12-02 12:00] VITALS: BP 110/40; BP 137/49
[2020-12-02 16:00] VITALS: BP 129/50; BP 143/61
[2020-12-02 20:00] VITALS: BP 150/58
[2020-12-03] VITALS: BP 141/48
[2020-12-03 08:00] VITALS: BP 152/69
[2020-12-03 12:00] VITALS: BP 160/90
[2020-12-03 16:00] VITALS: BP 141/73
[2020-12-03 20:00] VITALS: BP 160/60
[2020-12-04] VITALS: BP 128/47
[2020-12-04 08:00] VITALS: BP 106/67
[2020-12-04 12:00] VITALS: BP 147/58
[2020-12-04] MEDS ORDERED: LISINOPRIL2.5 MG PO (13:17)
[2020-12-04] MEDS ORDERED: HYDROCODONE-AC1 EAC1 PO (13:17)
[2021-01-06 12:06] LABS: ACID FAST CULTURE Negative (.)
== END 2020-12-04 19:38 | DRG 871 ==
LOC: ED 11:54 → ICCU 13:35 → EDHOLD 13:35 → 5E 13:35 → ICCU 16:00 → 5E 11-19 16:45
PROVIDERS: Emergency Medicine; Family Medicine; Internal Medicine; Internal Medicine Critical Care Medicine; Internal Medicine Gastroenterology; Internal Medicine Nephrology; Nurse Practitioner Family; Podiatrist Foot & Ankle Surgery; Student in an Organized Health Care Education/Training Program; Surgery; ADMIT Student in an Organized Health Care Education/Training Program; ATTEND Student in an Organized Health Care Education/Training Program
PROC: 0JH63XZ Insertion of Tunneled Vascular Access Device into Chest Subcutaneous Tissue and Fascia, Percutaneous Approach (ICD-10-PCS; 2020-11-19)
PROC: 05HM33Z Insertion of Infusion Device into Right Internal Jugular Vein, Percutaneous Approach (ICD-10-PCS; 2020-11-19)
PROC: B5131ZA Fluoroscopy of Right Jugular Veins using Low Osmolar Contrast, Guidance (ICD-10-PCS; 2020-11-19)
PROC: 5A1D70Z Performance of Urinary Filtration, Intermittent, Less than 6 Hours Per Day (ICD-10-PCS; 2020-11-19)
PROC: 0DB98ZX Excision of Duodenum, Via Natural or Artificial Opening Endoscopic, Diagnostic (ICD-10-PCS; principal; 2020-11-20)
PROC: 5A1D70Z Performance of Urinary Filtration, Intermittent, Less than 6 Hours Per Day (ICD-10-PCS; 2020-11-21)
PROC: 0W993ZZ Drainage of Right Pleural Cavity, Percutaneous Approach (ICD-10-PCS; 2020-11-22)
DX: A41.9 Sepsis, unspecified organism (principal); I50.23 Acute on chronic systolic (congestive) heart failure; J18.9 Pneumonia, unspecified organism; J96.00 Acute respiratory failure, unspecified whether with hypoxia or hypercapnia; N17.0 Acute kidney failure with tubular necrosis; K22.11 Ulcer of esophagus with bleeding; K29.71 Gastritis, unspecified, with bleeding; L03.116 Cellulitis of left lower limb; E87.1 Hypo-osmolality and hyponatremia; I48.92 Unspecified atrial flutter; E44.0 Moderate protein-calorie malnutrition; L03.115 Cellulitis of right lower limb; N18.5 Chronic kidney disease, stage 5; I13.2 Hypertensive heart and chronic kidney disease with heart failure and with stage 5 chronic kidney disease, or end stage renal disease; J91.8 Pleural effusion in other conditions classified elsewhere; R65.20 Severe sepsis without septic shock; E87.5 Hyperkalemia; E83.41 Hypermagnesemia; I48.91 Unspecified atrial fibrillation; E11.22 Type 2 diabetes mellitus with diabetic chronic kidney disease; E11.51 Type 2 diabetes mellitus with diabetic peripheral angiopathy without gangrene; E11.65 Type 2 diabetes mellitus with hyperglycemia; R74.01 Elevation of levels of liver transaminase levels; E66.9 Obesity, unspecified; I25.10 Atherosclerotic heart disease of native coronary artery without angina pectoris; E11.621 Type 2 diabetes mellitus with foot ulcer; Z96.653 Presence of artificial knee joint, bilateral; L97.529 Non-pressure chronic ulcer of other part of left foot with unspecified severity; I25.5 Ischemic cardiomyopathy; I08.1 Rheumatic disorders of both mitral and tricuspid valves; I27.20 Pulmonary hypertension, unspecified; L97.511 Non-pressure chronic ulcer of other part of right foot limited to breakdown of skin; D63.8 Anemia in other chronic diseases classified elsewhere; E03.9 Hypothyroidism, unspecified; Z20.822 Contact with and (suspected) exposure to COVID-19; Z95.810 Presence of automatic (implantable) cardiac defibrillator; Z79.4 Long term (current) use of insulin; Z68.39 Body mass index [BMI] 39.0-39.9, adult; Z95.1 Presence of aortocoronary bypass graft; Z83.3 Family history of diabetes mellitus; Z79.1 Long term (current) use of non-steroidal anti-inflammatories (NSAID); Z79.899 Other long term (current) drug therapy

== ENCOUNTER → 2021-07-21 | Outpatient (CLI) | payer OTHER ==
[~2021-07-21] MED LIST changes: +BUMETANIDE1 MG PO; +LISINOPRIL2.5 MG PO
== END ==
LOC: WOUNDCARE 01:07
PROVIDERS: ATTEND Nurse Practitioner Family
DX: E11.622 Type 2 diabetes mellitus with other skin ulcer (principal); L97.822 Non-pressure chronic ulcer of other part of left lower leg with fat layer exposed; I11.9 Hypertensive heart disease without heart failure; I50.9 Heart failure, unspecified; Z99.2 Dependence on renal dialysis; Z96.653 Presence of artificial knee joint, bilateral; Z98.890 Other specified postprocedural states; Z72.89 Other problems related to lifestyle

== ENCOUNTER → 2021-07-28 | Outpatient (CLI) | payer OTHER | LOC: WOUNDCARE 00:23 | PROVIDERS: ATTEND Nurse Practitioner Family | DX: E11.622 Type 2 diabetes mellitus with other skin ulcer (principal); L97.822 Non-pressure chronic ulcer of other part of left lower leg with fat layer exposed; I11.9 Hypertensive heart disease without heart failure; I50.9 Heart failure, unspecified; Z99.2 Dependence on renal dialysis; Z96.653 Presence of artificial knee joint, bilateral; Z98.890 Other specified postprocedural states; Z72.89 Other problems related to lifestyle ==

== ENCOUNTER → 2022-07-06 | Outpatient (CLI) | payer OTHER ==
[~2022-07-06] MED LIST changes: +CALCIUM ACETAT667 MG PO; +LANTUS SOL100 UNIT/1 SC; +LASIX80 MG PO; +MEROPENEM-500 MG/50 IV; +RISPERIDONE0.5 MG PO; +RIVASTIGMINE1 EACH T; +ZESTRIL,PRINIVIL5 MG PO
== END | disposition home or self-care (01) ==
LOC: WOUNDCARE 07:28
PROVIDERS: ATTEND Podiatrist Foot & Ankle Surgery
DX: E11.622 Type 2 diabetes mellitus with other skin ulcer (principal); L97.822 Non-pressure chronic ulcer of other part of left lower leg with fat layer exposed; L97.812 Non-pressure chronic ulcer of other part of right lower leg with fat layer exposed; L97.212 Non-pressure chronic ulcer of right calf with fat layer exposed; L97.222 Non-pressure chronic ulcer of left calf with fat layer exposed; I87.2 Venous insufficiency (chronic) (peripheral); E11.51 Type 2 diabetes mellitus with diabetic peripheral angiopathy without gangrene; E11.22 Type 2 diabetes mellitus with diabetic chronic kidney disease; N18.9 Chronic kidney disease, unspecified; E07.9 Disorder of thyroid, unspecified; I11.0 Hypertensive heart disease with heart failure; I50.9 Heart failure, unspecified; I25.2 Old myocardial infarction; I25.10 Atherosclerotic heart disease of native coronary artery without angina pectoris; I48.91 Unspecified atrial fibrillation; Z95.0 Presence of cardiac pacemaker; Z79.4 Long term (current) use of insulin; Z79.899 Other long term (current) drug therapy; Z96.653 Presence of artificial knee joint, bilateral; Z95.1 Presence of aortocoronary bypass graft

== ENCOUNTER 2022-07-17 11:31 | Emergency (ER) | payer OTHER ==
[~2022-07-17] VITALS: Ht 195.5 cm; Wt 122.5 kg
[2022-07-17 12:44] LABS: BASO % 0.6 % (0.0-1.0); EOS # 0.1 10*3/uL (0.0-0.4); EOS % 1.7 % (1.0-4.0); HEMATOCRIT 28.7 % (42.0-52.0); LYMPH # 0.8 10*3/uL (1.3-4.4); LYMPH % 16.3 % (27.0-41.0); MEAN CORPUSCULAR HGB 29.8 pg (27.0-31.0); MEAN CORPUSCULAR HGB CONC 32.4 g/dl (33.0-37.0); MONO # 0.5 10*3/uL (0.1-1.0); MONO % 10.4 % (3.0-9.0); NEUT # 3.4 10*3/uL (2.3-7.9); NEUT % 70.4 % (47.0-73.0); PLATELET COUNT AUTOMATED 128 10*3/uL (130-400); RED BLOOD COUNT 3.12 10*6/uL (4.50-5.90); WHITE BLOOD COUNT 4.8 10*3/uL (4.8-10.8)
[2022-07-17 12:58] LABS: ACT PARTIAL THROMBO TIME 31.3 SECONDS (20.0-32.1); INTERNATIONAL NORM RATIO 1.1 (2.0-3.5)
[2022-07-17 13:04] LABS: POTASSIUM 4.8 mmol/L (3.5-5.1); TOTAL PROTEIN 7.1 gm/dL (6.4-8.2)
== END 2022-07-17 15:59 ==
LOC: ED 11:31
PROVIDERS: Emergency Medicine
DX: R60.0 Localized edema (principal); Z79.899 Other long term (current) drug therapy

== ENCOUNTER 2023-04-08 09:34 | Inpatient (IN) | payer OTHER ==
[~2023-04-08] VITALS: Ht 195.5 cm; Wt 101.3 kg
[2023-04-08 09:37] VITALS: BP 126/60
[2023-04-08 10:29] LABS: BASO % 0.5 % (0.0-1.0); EOS % 0.2 % (1.0-4.0); HEMATOCRIT 33.5 % (42.0-52.0); LYMPH # 0.7 10*3/uL (1.3-4.4); LYMPH % 13.2 % (27.0-41.0); MEAN CELL VOLUME 92.8 fl (80.0-94.0); MEAN CORPUSCULAR HGB 29.6 pg (27.0-31.0); MEAN CORPUSCULAR HGB CONC 31.9 g/dl (33.0-37.0); MEAN PLATELET VOLUME 10.2 fl (9.6-12.3); MONO # 0.6 10*3/uL (0.1-1.0); NEUT # 4.2 10*3/uL (2.3-7.9); NEUT % 75.6 % (47.0-73.0); PLATELET COUNT AUTOMATED 154 10*3/uL (130-400); RED BLOOD COUNT 3.61 10*6/uL (4.50-5.90); RED CELL DISTRI WIDTH 13.8 % (0-14.5); WHITE BLOOD COUNT 5.5 10*3/uL (4.8-10.8)
[2023-04-08 10:42] LABS: ACT PARTIAL THROMBO TIME 31.9 SECONDS (20.0-32.1); INTERNATIONAL NORM RATIO 1.1 (2.0-3.5)
[2023-04-08 11:00] LABS: POTASSIUM 3.5 mmol/L (3.4-5.1); TOTAL PROTEIN 6.5 gm/dL (6.0-8.0)
[2023-04-08 14:30] VITALS: BP 144/75
[2023-04-08 20:05] VITALS: BP 137/69
[2023-04-09 05:32] VITALS: BP 134/52
[2023-04-09 06:18] VITALS: BP 124/51
[2023-04-09 07:39] LABS: BASO % 0.5 % (0.0-1.0); EOS % 0.5 % (1.0-4.0); HEMATOCRIT 37.1 % (42.0-52.0); LYMPH # 0.8 10*3/uL (1.3-4.4); LYMPH % 13.7 % (27.0-41.0); MEAN CORPUSCULAR HGB 28.6 pg (27.0-31.0); MEAN CORPUSCULAR HGB CONC 30.7 g/dl (33.0-37.0); MEAN PLATELET VOLUME 10.4 fl (9.6-12.3); MONO # 0.5 10*3/uL (0.1-1.0); MONO % 7.8 % (3.0-9.0); NEUT # 4.6 10*3/uL (2.3-7.9); NEUT % 76.8 % (47.0-73.0); PLATELET COUNT AUTOMATED 153 10*3/uL (130-400); RED BLOOD COUNT 3.99 10*6/uL (4.50-5.90); RED CELL DISTRI WIDTH 13.8 % (0-14.5)
[2023-04-09 08:07] LABS: POTASSIUM 3.3 mmol/L (3.4-5.1); TOTAL PROTEIN 6.7 gm/dL (6.0-8.0)
[2023-04-09 08:43] LABS: VITAMIN D, 25-HYDROXY 49.2 ng/mL (30-100)
[2023-04-09 16:00] VITALS: BP 129/64
[2023-04-09 20:00] VITALS: BP 133/60
[2023-04-10] VITALS: BP 116/50
[2023-04-10 06:23] LABS: BASO % 0.4 % (0.0-1.0); EOS # 0.1 10*3/uL (0.0-0.4); EOS % 0.7 % (1.0-4.0); HEMATOCRIT 35.8 % (42.0-52.0); LYMPH # 0.9 10*3/uL (1.3-4.4); LYMPH % 12.7 % (27.0-41.0); MEAN CELL VOLUME 93.5 fl (80.0-94.0); MEAN CORPUSCULAR HGB 28.2 pg (27.0-31.0); MEAN CORPUSCULAR HGB CONC 30.2 g/dl (33.0-37.0); MONO # 0.7 10*3/uL (0.1-1.0); MONO % 9.9 % (3.0-9.0); NEUT # 5.5 10*3/uL (2.3-7.9); NEUT % 75.8 % (47.0-73.0); PLATELET COUNT AUTOMATED 158 10*3/uL (130-400); RED BLOOD COUNT 3.83 10*6/uL (4.50-5.90); RED CELL DISTRI WIDTH 13.7 % (0-14.5); WHITE BLOOD COUNT 7.3 10*3/uL (4.8-10.8)
[2023-04-10 08:00] VITALS: BP 142/70
[2023-04-10 12:00] VITALS: BP 136/66
[2023-04-10 16:00] VITALS: BP 132/68
[2023-04-10 20:00] VITALS: BP 126/90
[2023-04-11] VITALS: BP 130/64
[2023-04-11 08:00] VITALS: BP 117/61
[2023-04-11 08:19] LABS: BASO % 0.7 % (0.0-1.0); EOS % 0.3 % (1.0-4.0); HEMATOCRIT 31.4 % (42.0-52.0); LYMPH # 0.9 10*3/uL (1.3-4.4); LYMPH % 15.1 % (27.0-41.0); MEAN CELL VOLUME 93.5 fl (80.0-94.0); MEAN CORPUSCULAR HGB 29.5 pg (27.0-31.0); MEAN CORPUSCULAR HGB CONC 31.5 g/dl (33.0-37.0); MONO # 0.5 10*3/uL (0.1-1.0); MONO % 8.8 % (3.0-9.0); NEUT # 4.6 10*3/uL (2.3-7.9); NEUT % 74.6 % (47.0-73.0); PLATELET COUNT AUTOMATED 129 10*3/uL (130-400); RED BLOOD COUNT 3.36 10*6/uL (4.50-5.90); WHITE BLOOD COUNT 6.1 10*3/uL (4.8-10.8)
[2023-04-11 08:43] LABS: POTASSIUM 3.5 mmol/L (3.4-5.1)
[2023-04-11 12:00] VITALS: BP 118/62
[2023-04-11 16:00] VITALS: BP 129/67
[2023-04-11 20:00] VITALS: BP 132/86
[2023-04-12] VITALS: BP 127/63
[2023-04-12 06:26] LABS: BASO % 0.3 % (0.0-1.0); EOS % 0.5 % (1.0-4.0); HEMATOCRIT 33.1 % (42.0-52.0); LYMPH # 0.8 10*3/uL (1.3-4.4); LYMPH % 12.9 % (27.0-41.0); MEAN CELL VOLUME 90.9 fl (80.0-94.0); MEAN CORPUSCULAR HGB 28.8 pg (27.0-31.0); MEAN CORPUSCULAR HGB CONC 31.7 g/dl (33.0-37.0); MEAN PLATELET VOLUME 10.9 fl (9.6-12.3); MONO # 0.5 10*3/uL (0.1-1.0); MONO % 8.3 % (3.0-9.0); NEUT # 5.1 10*3/uL (2.3-7.9); NEUT % 77.5 % (47.0-73.0); PLATELET COUNT AUTOMATED 142 10*3/uL (130-400); RED BLOOD COUNT 3.64 10*6/uL (4.50-5.90); RED CELL DISTRI WIDTH 13.8 % (0-14.5); WHITE BLOOD COUNT 6.5 10*3/uL (4.8-10.8)
[2023-04-12 06:30] LABS: POTASSIUM 3.9 mmol/L (3.4-5.1)
[2023-04-12 12:00] VITALS: BP 126/64
[2023-04-12 16:00] VITALS: BP 123/72; BP 163/73
[2023-04-12 20:00] VITALS: BP 120/50
[2023-04-13] VITALS: BP 127/51
[2023-04-13 06:26] LABS: BASO % 0.5 % (0.0-1.0); EOS % 0.5 % (1.0-4.0); HEMATOCRIT 32.5 % (42.0-52.0); LYMPH # 0.8 10*3/uL (1.3-4.4); LYMPH % 12.7 % (27.0-41.0); MEAN CELL VOLUME 92.1 fl (80.0-94.0); MEAN CORPUSCULAR HGB 28.9 pg (27.0-31.0); MEAN CORPUSCULAR HGB CONC 31.4 g/dl (33.0-37.0); MEAN PLATELET VOLUME 10.8 fl (9.6-12.3); MONO # 0.6 10*3/uL (0.1-1.0); MONO % 9.6 % (3.0-9.0); NEUT % 75.9 % (47.0-73.0); PLATELET COUNT AUTOMATED 143 10*3/uL (130-400); RED BLOOD COUNT 3.53 10*6/uL (4.50-5.90); RED CELL DISTRI WIDTH 14.1 % (0-14.5); WHITE BLOOD COUNT 6.5 10*3/uL (4.8-10.8)
[2023-04-13 06:57] LABS: POTASSIUM 3.4 mmol/L (3.4-5.1)
[2023-04-13 08:00] VITALS: BP 134/74
[2023-04-13 12:00] VITALS: BP 122/88
[2023-04-13 16:00] VITALS: BP 117/78
== END 2023-04-13 19:36 | disposition short-term general hospital (02) | DRG 602 ==
LOC: ED 09:34 → EDHOLD 11:59 → 4E 11:59 → EDHOLD 14:04 → 4E 04-09 12:33
PROVIDERS: Emergency Medicine; Internal Medicine; Student in an Organized Health Care Education/Training Program; ADMIT Student in an Organized Health Care Education/Training Program; ATTEND Student in an Organized Health Care Education/Training Program
DX: L03.115 Cellulitis of right lower limb (principal); E43 Unspecified severe protein-calorie malnutrition; N18.6 End stage renal disease; E11.52 Type 2 diabetes mellitus with diabetic peripheral angiopathy with gangrene; I48.92 Unspecified atrial flutter; I25.810 Atherosclerosis of coronary artery bypass graft(s) without angina pectoris; I50.32 Chronic diastolic (congestive) heart failure; E87.1 Hypo-osmolality and hyponatremia; I13.2 Hypertensive heart and chronic kidney disease with heart failure and with stage 5 chronic kidney disease, or end stage renal disease; K56.690 Other partial intestinal obstruction; Z96.653 Presence of artificial knee joint, bilateral; L03.116 Cellulitis of left lower limb; E11.22 Type 2 diabetes mellitus with diabetic chronic kidney disease; D64.9 Anemia, unspecified; E78.5 Hyperlipidemia, unspecified; E03.9 Hypothyroidism, unspecified; E87.6 Hypokalemia; E87.8 Other disorders of electrolyte and fluid balance, not elsewhere classified; E11.65 Type 2 diabetes mellitus with hyperglycemia; E83.39 Other disorders of phosphorus metabolism; K59.00 Constipation, unspecified; Z99.2 Dependence on renal dialysis; Z95.810 Presence of automatic (implantable) cardiac defibrillator; I25.2 Old myocardial infarction; Z83.3 Family history of diabetes mellitus; Z95.1 Presence of aortocoronary bypass graft; Z68.31 Body mass index [BMI] 31.0-31.9, adult

== ENCOUNTER 2023-04-23 07:08 | Emergency (ER) | payer OTHER ==
[~2023-04-23] VITALS: Ht 195.5 cm; Wt 107.0 kg
[2023-04-23 08:13] LABS: BASO % 0.7 % (0.0-1.0); EOS # 0.1 10*3/uL (0.0-0.4); EOS % 1.4 % (1.0-4.0); HEMATOCRIT 33.4 % (42.0-52.0); LYMPH % 16.9 % (27.0-41.0); MEAN CELL VOLUME 92.5 fl (80.0-94.0); MEAN CORPUSCULAR HGB 28.5 pg (27.0-31.0); MEAN CORPUSCULAR HGB CONC 30.8 g/dl (33.0-37.0); MEAN PLATELET VOLUME 10.1 fl (9.6-12.3); MONO # 0.5 10*3/uL (0.1-1.0); MONO % 8.3 % (3.0-9.0); NEUT # 4.1 10*3/uL (2.3-7.9); NEUT % 71.8 % (47.0-73.0); PLATELET COUNT AUTOMATED 179 10*3/uL (130-400); RED BLOOD COUNT 3.61 10*6/uL (4.50-5.90); RED CELL DISTRI WIDTH 13.9 % (0-14.5); WHITE BLOOD COUNT 5.7 10*3/uL (4.8-10.8)
[2023-04-23 08:26] LABS: ACT PARTIAL THROMBO TIME 33.5 SECONDS (20.0-32.1); INTERNATIONAL NORM RATIO 1.2 (2.0-3.5)
[2023-04-23 08:39] LABS: TOTAL PROTEIN 6.7 gm/dL (6.0-8.0)
== END 2023-04-23 10:30 ==
LOC: ED 07:08
PROVIDERS: Emergency Medicine
DX: S90.922A Unspecified superficial injury of left foot, initial encounter (principal); I73.9 Peripheral vascular disease, unspecified; I25.10 Atherosclerotic heart disease of native coronary artery without angina pectoris; I50.9 Heart failure, unspecified; E11.9 Type 2 diabetes mellitus without complications; Z79.4 Long term (current) use of insulin; Z98.890 Other specified postprocedural states; X58.XXXA Exposure to other specified factors, initial encounter; Y93.89 Activity, other specified; Y92.009 Unspecified place in unspecified non-institutional (private) residence as the place of occurrence of the external cause; Y99.8 Other external cause status

== ENCOUNTER 2023-05-13 09:17 | Emergency (ER) | payer OTHER ==
[~2023-05-13] VITALS: Ht 195.5 cm; Wt 104.8 kg
[2023-05-13 10:48] LABS: BASO % 0.4 % (0.0-1.0); EOS % 0.6 % (1.0-4.0); HEMATOCRIT 32.1 % (42.0-52.0); LYMPH # 0.6 10*3/uL (1.3-4.4); LYMPH % 10.6 % (27.0-41.0); MEAN CORPUSCULAR HGB 28.6 pg (27.0-31.0); MEAN CORPUSCULAR HGB CONC 30.8 g/dl (33.0-37.0); MEAN PLATELET VOLUME 11.1 fl (9.6-12.3); MONO # 0.5 10*3/uL (0.1-1.0); MONO % 9.3 % (3.0-9.0); NEUT # 4.1 10*3/uL (2.3-7.9); NEUT % 78.5 % (47.0-73.0); PLATELET COUNT AUTOMATED 158 10*3/uL (130-400); RED BLOOD COUNT 3.46 10*6/uL (4.50-5.90); RED CELL DISTRI WIDTH 14.9 % (0-14.5); WHITE BLOOD COUNT 5.2 10*3/uL (4.8-10.8)
[2023-05-13 11:01] LABS: MEAN CELL VOLUME 92.8 fl (80.0-94.0)
[2023-05-13 11:10] LABS: POTASSIUM 3.4 mmol/L (3.4-5.1); TOTAL PROTEIN 6.6 gm/dL (6.0-8.0)
== END 2023-05-13 17:05 | disposition home or self-care (01) ==
LOC: ED 09:17
PROVIDERS: Internal Medicine
DX: I73.9 Peripheral vascular disease, unspecified (principal); I25.10 Atherosclerotic heart disease of native coronary artery without angina pectoris; I50.9 Heart failure, unspecified; E11.9 Type 2 diabetes mellitus without complications; Z79.4 Long term (current) use of insulin; Z98.890 Other specified postprocedural states; Z96.653 Presence of artificial knee joint, bilateral; Z95.5 Presence of coronary angioplasty implant and graft

== ENCOUNTER 2023-05-20 11:05 | Emergency (ER) | payer OTHER ==
[~2023-05-20] VITALS: Ht 195.5 cm; Wt 101.2 kg
[2023-05-20 12:15] LABS: BASO % 0.2 % (0.0-1.0); EOS # 0.1 10*3/uL (0.0-0.4); EOS % 0.6 % (1.0-4.0); HEMATOCRIT 31.2 % (42.0-52.0); LYMPH # 0.8 10*3/uL (1.3-4.4); LYMPH % 9.3 % (27.0-41.0); MEAN CELL VOLUME 92.3 fl (80.0-94.0); MEAN CORPUSCULAR HGB CONC 31.4 g/dl (33.0-37.0); MEAN PLATELET VOLUME 10.4 fl (9.6-12.3); MONO # 0.6 10*3/uL (0.1-1.0); MONO % 7.4 % (3.0-9.0); NEUT # 6.7 10*3/uL (2.3-7.9); NEUT % 81.7 % (47.0-73.0); PLATELET COUNT AUTOMATED 158 10*3/uL (130-400); RED BLOOD COUNT 3.38 10*6/uL (4.50-5.90); RED CELL DISTRI WIDTH 14.9 % (0-14.5); WHITE BLOOD COUNT 8.3 10*3/uL (4.8-10.8)
[2023-05-20 12:27] LABS: ACT PARTIAL THROMBO TIME 34.8 SECONDS (20.0-32.1); INTERNATIONAL NORM RATIO 1.1 (2.0-3.5)
[2023-05-20 12:38] LABS: POTASSIUM 3.7 mmol/L (3.4-5.1); TOTAL PROTEIN 6.6 gm/dL (6.0-8.0)
== END 2023-05-20 17:28 | disposition short-term general hospital (02) ==
LOC: ED 11:05
PROVIDERS: Emergency Medicine
DX: L03.031 Cellulitis of right toe (principal); I73.9 Peripheral vascular disease, unspecified; B87.0 Cutaneous myiasis; R11.0 Nausea; I13.0 Hypertensive heart and chronic kidney disease with heart failure and stage 1 through stage 4 chronic kidney disease, or unspecified chronic kidney disease; E11.22 Type 2 diabetes mellitus with diabetic chronic kidney disease; I25.10 Atherosclerotic heart disease of native coronary artery without angina pectoris; I50.9 Heart failure, unspecified; Z79.4 Long term (current) use of insulin; N18.9 Chronic kidney disease, unspecified; Z98.890 Other specified postprocedural states; Z96.653 Presence of artificial knee joint, bilateral; Z95.5 Presence of coronary angioplasty implant and graft

== ENCOUNTER → 2023-06-15 | Emergency (ER) | payer OTHER ==
[~2023-06-15] VITALS: Wt 93.6 kg
[~2023-06-15] MED LIST changes: +COLACE100 MG PO; +HUMALOG100 UNIT/1 SC; +LEVOTHYROXINE125 MCG PO; +LISINOPRIL5 MG PO; +MEMANTINE HCL5 MG PO; +OMNICEF300 MG PO; +OXYCODONE HCL5 MG PO; +PAIN RELIEVER325 MG PO; +RIVASTIGMINE1 EACH TD; +SERTRALINE HYDR50 MG PO; +ZITHROMAX250 MG PO
[2023-06-15 14:42] LABS: BASO % 0.7 % (0.0-1.0); EOS # 0.1 10*3/uL (0.0-0.4); EOS % 0.9 % (1.0-4.0); HEMATOCRIT 31.6 % (42.0-52.0); LYMPH # 0.8 10*3/uL (1.3-4.4); LYMPH % 15.2 % (27.0-41.0); MEAN CELL VOLUME 92.1 fl (80.0-94.0); MEAN CORPUSCULAR HGB 28.9 pg (27.0-31.0); MEAN CORPUSCULAR HGB CONC 31.3 g/dl (33.0-37.0); MONO # 0.6 10*3/uL (0.1-1.0); MONO % 10.2 % (3.0-9.0); NEUT % 72.5 % (47.0-73.0); PLATELET COUNT AUTOMATED 143 10*3/uL (130-400); RED BLOOD COUNT 3.43 10*6/uL (4.50-5.90); RED CELL DISTRI WIDTH 16.8 % (0-14.5); WHITE BLOOD COUNT 5.5 10*3/uL (4.8-10.8)
[2023-06-15 14:52] LABS: ACT PARTIAL THROMBO TIME 34.4 SECONDS (20.0-32.1); INTERNATIONAL NORM RATIO 1.2 (2.0-3.5)
[2023-06-15 15:12] LABS: POTASSIUM 3.6 mmol/L (3.4-5.1); TOTAL PROTEIN 6.4 gm/dL (6.0-8.0)
[2023-06-15 16:14] LABS: BILIRUBIN Negative (Negative); BLOOD Negative (Negative); CLARITY Clear (Clear); COLOR Yellow (Yellow); GLUCOSE Negative (Negative); KETONE Negative (Negative); LEUKO ESTERASE Negative (Negative); NITRITE Negative (Negative); SPECIFIC GRAVITY 1.015 (1.001-1.030)
[2023-06-15 16:15] LABS: PH 8.5 (4.5-8.0)
[2023-06-15 16:39] LABS: BACTERIA 1+
== END ==
LOC: ED 14:10
PROVIDERS: Internal Medicine
DX: R41.82 Altered mental status, unspecified (principal); E11.22 Type 2 diabetes mellitus with diabetic chronic kidney disease; N18.9 Chronic kidney disease, unspecified; I50.9 Heart failure, unspecified; I25.10 Atherosclerotic heart disease of native coronary artery without angina pectoris; Z99.2 Dependence on renal dialysis; Z96.653 Presence of artificial knee joint, bilateral; Z98.890 Other specified postprocedural states

== ENCOUNTER 2023-07-03 22:27 | Inpatient (IN) | payer OTHER ==
[~2023-07-03] VITALS: Ht 195.5 cm; Wt 88.6 kg
[~2023-07-03 22:27] MED LIST changes: +LIPITOR40 MG PO
[2023-07-04] VITALS: BP 119/76
[2023-07-05 12:00] VITALS: BP 108/72
[2023-07-05 20:00] VITALS: BP 62/54
[2023-07-06] VITALS: BP 84/53
== END 2023-07-06 02:44 | DRG 193 ==
LOC: 4E 22:27
PROVIDERS: ADMIT Internal Medicine; ATTEND Internal Medicine
DX: J18.9 Pneumonia, unspecified organism (principal); E43 Unspecified severe protein-calorie malnutrition; N18.6 End stage renal disease; Z51.5 Encounter for palliative care; I51.7 Cardiomegaly; D64.9 Anemia, unspecified; E87.6 Hypokalemia; R73.9 Hyperglycemia, unspecified; R74.8 Abnormal levels of other serum enzymes; Z66 Do not resuscitate; Z68.23 Body mass index [BMI] 23.0-23.9, adult